=== PATIENT | female | born 2000 | race Caucasian/White ===

== ENCOUNTER 2021-03-27 15:10 | Emergency (ER) | payer OTHER ==
[2021-03-27] MEDS ORDERED: CYCLOBENZAPRINE10 MG PO (18:19)
[2021-03-27] MEDS ORDERED: MOBIC15 MG PO (18:19)
== END 2021-03-27 18:24 | disposition home or self-care (01) ==
LOC: ER1 15:10
DX: S06.9X9A Unspecified intracranial injury with loss of consciousness of unspecified duration, initial encounter (principal); S39.012A Strain of muscle, fascia and tendon of lower back, initial encounter; S16.1XXA Strain of muscle, fascia and tendon at neck level, initial encounter; F17.290 Nicotine dependence, other tobacco product, uncomplicated; W22.11XA Striking against or struck by driver side automobile airbag, initial encounter; V49.40XA Driver injured in collision with unspecified motor vehicles in traffic accident, initial encounter; Y92.410 Unspecified street and highway as the place of occurrence of the external cause
CPT/HCPCS: 70450; 72100; 72125; 73502; 99284

== ENCOUNTER → 2021-08-04 | Outpatient (CLI) | payer OTHER ==
[~2021-08-04] MED LIST: CYCLOBENZAPRINE10 MG PO; MOBIC15 MG PO
== END ==
LOC: KOH-I 11:30
DX: J32.0 Chronic maxillary sinusitis (principal); J33.8 Other polyp of sinus; J34.89 Other specified disorders of nose and nasal sinuses
CPT/HCPCS: 70486

== ENCOUNTER → 2021-09-11 | Day surgery (SDC) | payer OTHER ==
[~2021-09-11] MED LIST changes: +CIPRO500 MG PO; +PREDNISONE 20 M20 MG PO; +VITAMIN B12 GUMMY PO; +VITAMIN C GUMMY PO; +VITAMIN D GUMMY PO; +WOMEN'S MULTI200 MCG PO; +WOMEN'S MULTIVITAMIN PO; +ZINC PO
== END | disposition home or self-care (01) ==
LOC: OR 06:02
DX: J32.8 Other chronic sinusitis (principal); J34.2 Deviated nasal septum; J34.3 Hypertrophy of nasal turbinates; J33.8 Other polyp of sinus; R09.81 Nasal congestion; Z20.822 Contact with and (suspected) exposure to COVID-19
CPT/HCPCS: 84703; C1726; J0171; J0690; J1100; J1170; J2001; J2250; J2405; J2704; J2710; J3010; J7030; J7120